=== PATIENT | male | born 1995 | race African-American/Black ===

== ENCOUNTER 2020-03-26 22:11 | Emergency (ER) | payer SELFPAY ==
[~2020-03-26] VITALS: Ht 180.3 cm; Wt 77.0 kg
[2020-03-27] MEDS ORDERED: ACETAMINOPHEN 325MG TABLET PO STA (00:08)
[2020-03-27] MEDS ORDERED: FAMOTIDINE 20MG TABLET PO STA (00:08)
[2020-03-27] MEDS ORDERED: VISCOUS LIDOCAINE 2% 15 ML UDC PO ONE (00:15)
[2020-03-27] MEDS ORDERED: MAGNESIUM/ALUMINUM HYDROXIDE/SIMETHICONE 30ML UDC PO ONE (00:15)
[2020-03-27 02:06] VITALS: BP 117/78
== END 2020-03-27 02:15 | disposition home or self-care (01) ==
LOC: ER 22:11
DX: R00.2 Palpitations (principal); R14.1 Gas pain; R10.13 Epigastric pain; Z91.011 Allergy to milk products
CPT/HCPCS: 71045; 74021; 93005; 99284